=== PATIENT | male | born 1935 | race Caucasian/White ===

== ENCOUNTER 2019-09-13 10:50 | Day surgery (SDC) | payer MEDICARE ==
[2019-09-13] MEDS ORDERED: LIDOcaine 2% 5ml jelly ONE (11:36)
== END 2019-09-13 13:35 | disposition home or self-care (01) ==
LOC: WOUND CARE 10:50
PROVIDERS: ATTEND Surgery
DX: I83.012 Varicose veins of right lower extremity with ulcer of calf (principal); I70.232 Atherosclerosis of native arteries of right leg with ulceration of calf; L97.211 Non-pressure chronic ulcer of right calf limited to breakdown of skin; L97.812 Non-pressure chronic ulcer of other part of right lower leg with fat layer exposed; I10 Essential (primary) hypertension; H35.00 Unspecified background retinopathy; H26.9 Unspecified cataract; Z85.46 Personal history of malignant neoplasm of prostate
CPT/HCPCS: 97597; A4663; A6021; A6446

== ENCOUNTER 2019-09-20 09:45 | Outpatient (CLI) | payer MEDICARE ==
[2019-09-20] MEDS ORDERED: LIDOcaine 2% 5ml jelly ONE (10:02)
== END 2019-09-20 11:00 | disposition home or self-care (01) ==
LOC: WOUND CARE 09:45
PROVIDERS: ATTEND Surgery
DX: I83.012 Varicose veins of right lower extremity with ulcer of calf (principal); I70.232 Atherosclerosis of native arteries of right leg with ulceration of calf; L97.211 Non-pressure chronic ulcer of right calf limited to breakdown of skin; L97.812 Non-pressure chronic ulcer of other part of right lower leg with fat layer exposed; I10 Essential (primary) hypertension; H35.00 Unspecified background retinopathy; H26.9 Unspecified cataract; Z85.46 Personal history of malignant neoplasm of prostate
CPT/HCPCS: 29581; A4663; A6021; A6154; A6446

== ENCOUNTER 2019-09-27 09:40 | Day surgery (SDC) | payer MEDICARE ==
[2019-09-27] MEDS ORDERED: LIDOcaine 2% 5ml jelly ONE (10:12)
== END 2019-09-27 11:42 | disposition home or self-care (01) ==
LOC: WOUND CARE 09:40
PROVIDERS: ATTEND Surgery
DX: I83.012 Varicose veins of right lower extremity with ulcer of calf (principal); I70.232 Atherosclerosis of native arteries of right leg with ulceration of calf; L97.211 Non-pressure chronic ulcer of right calf limited to breakdown of skin; L97.812 Non-pressure chronic ulcer of other part of right lower leg with fat layer exposed; I10 Essential (primary) hypertension; H35.00 Unspecified background retinopathy; H26.9 Unspecified cataract; Z85.46 Personal history of malignant neoplasm of prostate
CPT/HCPCS: 97597; A4663; A6021; A6154; A6446

== ENCOUNTER 2019-10-04 09:26 | Day surgery (SDC) | payer MEDICARE ==
[2019-10-04] MEDS ORDERED: LIDOcaine 2% 5ml jelly ONE (09:54)
== END 2019-10-04 10:50 | disposition home or self-care (01) ==
LOC: WOUND CARE 09:26
PROVIDERS: ATTEND Surgery
DX: I83.012 Varicose veins of right lower extremity with ulcer of calf (principal); I70.232 Atherosclerosis of native arteries of right leg with ulceration of calf; L97.211 Non-pressure chronic ulcer of right calf limited to breakdown of skin; L97.812 Non-pressure chronic ulcer of other part of right lower leg with fat layer exposed; I10 Essential (primary) hypertension; H35.00 Unspecified background retinopathy; H26.9 Unspecified cataract; Z85.46 Personal history of malignant neoplasm of prostate
CPT/HCPCS: 97597; A4663; A6021; A6154; A6446

== ENCOUNTER 2019-10-11 10:55 | Day surgery (SDC) | payer MEDICARE ==
[2019-10-11] MEDS ORDERED: LIDOcaine 2% 5ml jelly ONE (12:02)
== END 2019-10-11 12:39 | disposition home or self-care (01) ==
LOC: WOUND CARE 10:55
PROVIDERS: ATTEND Surgery
DX: I83.012 Varicose veins of right lower extremity with ulcer of calf (principal); I70.232 Atherosclerosis of native arteries of right leg with ulceration of calf; L97.211 Non-pressure chronic ulcer of right calf limited to breakdown of skin; L97.812 Non-pressure chronic ulcer of other part of right lower leg with fat layer exposed; I10 Essential (primary) hypertension; H35.00 Unspecified background retinopathy; H26.9 Unspecified cataract; Z85.46 Personal history of malignant neoplasm of prostate
CPT/HCPCS: 97597; A4663; A6021; A6154; A6446

== ENCOUNTER 2019-10-18 09:10 | Day surgery (SDC) | payer MEDICARE | END 2019-10-18 11:26 | disposition home or self-care (01) | LOC: WOUND CARE 09:10 | PROVIDERS: ATTEND Surgery | DX: I83.012 Varicose veins of right lower extremity with ulcer of calf (principal); I70.232 Atherosclerosis of native arteries of right leg with ulceration of calf; L97.211 Non-pressure chronic ulcer of right calf limited to breakdown of skin; L97.812 Non-pressure chronic ulcer of other part of right lower leg with fat layer exposed; I10 Essential (primary) hypertension; H35.00 Unspecified background retinopathy; H26.9 Unspecified cataract; Z85.46 Personal history of malignant neoplasm of prostate | CPT/HCPCS: 93922; 93926; A6209; A6222; C5271; Q4102; A4663; A6250; A6446 ==

== ENCOUNTER 2019-10-25 09:30 | Day surgery (SDC) | payer MEDICARE ==
[2019-10-25] MEDS ORDERED: LIDOcaine 2% 5ml jelly ONE (09:49)
== END 2019-10-25 10:49 | disposition home or self-care (01) ==
LOC: WOUND CARE 09:30
PROVIDERS: ATTEND Surgery
DX: I83.012 Varicose veins of right lower extremity with ulcer of calf (principal); I70.232 Atherosclerosis of native arteries of right leg with ulceration of calf; L97.211 Non-pressure chronic ulcer of right calf limited to breakdown of skin; L97.812 Non-pressure chronic ulcer of other part of right lower leg with fat layer exposed; I10 Essential (primary) hypertension; H35.00 Unspecified background retinopathy; H26.9 Unspecified cataract; Z85.46 Personal history of malignant neoplasm of prostate
CPT/HCPCS: A6222; G0463; A4663; A6021; A6446

== ENCOUNTER 2019-11-04 09:27 | Day surgery (SDC) | payer MEDICARE ==
[2019-11-04] MEDS ORDERED: LIDOcaine 2% 5ml jelly ONE (11:15)
== END 2019-11-04 12:01 | disposition home or self-care (01) ==
LOC: WOUND CARE 09:27
PROVIDERS: ATTEND Surgery
DX: I83.012 Varicose veins of right lower extremity with ulcer of calf (principal); I70.232 Atherosclerosis of native arteries of right leg with ulceration of calf; L97.211 Non-pressure chronic ulcer of right calf limited to breakdown of skin; L97.812 Non-pressure chronic ulcer of other part of right lower leg with fat layer exposed; I10 Essential (primary) hypertension; H35.00 Unspecified background retinopathy; H26.9 Unspecified cataract; Z85.46 Personal history of malignant neoplasm of prostate
CPT/HCPCS: A6209; A6222; C5271; Q4102; A4663; A6446

== ENCOUNTER 2019-11-11 10:36 | Day surgery (SDC) | payer MEDICARE | END 2019-11-11 11:29 | disposition home or self-care (01) | LOC: WOUND CARE 10:36 | PROVIDERS: ATTEND Surgery | DX: I83.012 Varicose veins of right lower extremity with ulcer of calf (principal); I70.232 Atherosclerosis of native arteries of right leg with ulceration of calf; L97.211 Non-pressure chronic ulcer of right calf limited to breakdown of skin; L97.812 Non-pressure chronic ulcer of other part of right lower leg with fat layer exposed; I10 Essential (primary) hypertension; H35.00 Unspecified background retinopathy; H26.9 Unspecified cataract; Z85.46 Personal history of malignant neoplasm of prostate | CPT/HCPCS: 29581; A4663; A6021; A6154; A6446 ==

== ENCOUNTER 2019-11-15 22:57 | Inpatient (IN) | payer MEDICARE ==
[~2019-11-15] VITALS: Ht 182.9 cm; Wt 122.7 kg
[2019-11-15] MEDS ORDERED: normal saline 1000ML IV soln IV ONE (23:10)
[2019-11-15] MEDS ORDERED: acetaminophen 325mg tablet PO STA (23:10)
--- NOTE | 2019-11-15 23:27 | NUR ---
To CT scan via gurney with the side rails raised.
[2019-11-15 23:39] LABS: BASOPHILS # (AUTO) 0.1 X10'3 (0-0.2); BASOPHILS % (AUTO) 0.5 % (0-1); EOSINOPHILS % (AUTO) 0 % (0-6); HEMATOCRIT 34.7 % (42.0-52.0); LYMPHOCYTES # (AUTO) 0.9 X10'3 (1.1-4.8); LYMPHOCYTES % (AUTO) 7.5 % (21-51); MEAN CORPUSCULAR HEMOGLOBIN 31.6 PG (27.0-31.0); MEAN CORPUSCULAR HGB CONC 34.5 g/dL (33.0-36.5); MEAN CORPUSCULAR VOLUME 91.8 FL (78-98); MEAN PLATELET VOLUME 8.1 FL (7.4-10.4); MONOCYTES # (AUTO) 1.2 X10'3 (0-0.9); MONOCYTES % (AUTO) 9.3 % (2-12); NEUTROPHILS # (AUTO) 10.3 X10'3 (1.8-7.7); NEUTROPHILS % (AUTO) 82.7 % (42-75); PLATELET COUNT 156 X10'3 (140-440); RED BLOOD COUNT 3.78 X10'6 (4.70-6.10); RED CELL DISTRIBUTION WIDTH 14.6 % (11.5-14.5); WHITE BLOOD COUNT 12.4 X10'3 (4.5-11.0)
[2019-11-15 23:48] LABS: ALANINE AMINOTRANSFERASE 48 U/L (12-78); ALBUMIN 2.8 G/DL (3.4-5.0); ALBUMIN/GLOBULIN RATIO 0.7 (1.1-1.5); ALKALINE PHOSPHATASE 83 IU/L (46-116); ANION GAP 8 (8-16); ASPARTATE AMINO TRANSFERASE 83 U/L (10-37); BILIRUBIN,TOTAL 0.9 MG/DL (0.1-1.0); BLOOD UREA NITROGEN 26 MG/DL (7-18); BUN/CREATININE RATIO 13.3 (5.4-32.0); CALCIUM 8.5 MG/DL (8.5-10.1); CHLORIDE 96 MMOL/L (99-107); CREATININE 1.96 MG/DL (0.60-1.10); GLUCOSE 274 MG/DL (70-104); POTASSIUM 3.8 MMOL/L (3.5-5.1); SODIUM 131 MMOL/L (135-145); TOTAL CARBON DIOXIDE 26.6 MMOL/L (24-32); TOTAL PROTEIN 7.1 G/DL (6.4-8.2); eGFR 33 ML/MIN
[2019-11-15 23:53] LABS: ETHANOL < 0.010 GM/DL (0.0-0.010); TROPONIN I < 0.04 NG/ML (0.0-0.05)
[2019-11-16] MEDS ORDERED: CefTRIAXone 2gm/D5W 50ml 50 ML IV ONE (00:10)
[2019-11-16] MEDS ORDERED: azithromycin/NS 500mg/250ml 250 ML IV ONE (00:10)
[2019-11-16] MEDS ORDERED: ASPI-1265 PO (00:12)
[2019-11-16] MEDS ORDERED: CHOL400T14 PO (00:12)
[2019-11-16] MEDS ORDERED: LISI-600 PO (00:12)
[2019-11-16] MEDS ORDERED: PRAV20TA4 PO (00:12)
[2019-11-16] MEDS ORDERED: mag hydrox/Alum hydrox/simeth 30ml oral suspension PO PRN (01:20)
[2019-11-16] MEDS ORDERED: acetaminophen 325mg tablet PO PRN (01:20)
[2019-11-16] MEDS ORDERED: magnesium 2GM in 50ml NS 50 ML IV PRN (01:20)
[2019-11-16] MEDS ORDERED: magnesium Cl slow-release 64mg tablet PO PRN (01:20)
[2019-11-16] MEDS ORDERED: ondansetron/PF 4mg/2ml inj IV PRN (01:20)
[2019-11-16] MEDS ORDERED: magnesium 4gm in 100ml NS 100 ML IV PRN (01:20)
[2019-11-16] MEDS ORDERED: potassium Cl 20 mEq SR tablet PO PRN ×2 (01:20)
[2019-11-16] MEDS ORDERED: magnesium hydroxide 30ml (MOM) UD suspension PO PRN (01:20)
[2019-11-16] MEDS ORDERED: normal saline 1000ml 1,000 ML IV ONE (01:20)
[2019-11-16] MEDS ORDERED: potassium CL 10mEq/100ml bag 100 ML IV PRN ×2 (01:20)
[2019-11-16 03:05] VITALS: BP 121/59
--- NOTE | 2019-11-16 03:05 | NUR ---
PATIENT ADMITTED TO ROOM 357B FROM ER FOR [facility]F, EARLY SEPSIS, FEVER, RLE CELLULITIS AND DIZZINESS. PLACED COMFORTABLE IN BED. VITAL SIGNS TAKEN AND RECORDED.
--- NOTE | 2019-11-16 04:00 | NUR ---
PATIENT NOTED WITH RIGHT LOWER LEG COVERED WITH MATT BANDAGE AND PATIENT CLAIMED THAT HE IS SEEING WOUND CARE. REMOVED MATT BANDAGE AND KERLIX AND NOTED 2 SMALL AREAS WITH SPECIAL DRESSING. SHOWED TO CHARGE NURSE AND ADVICE NOT TO REMOVE DRESSING BECAUSE IT'S NOT AVAILABLE IN THE FLOOR BUT WAIT FOR WOUND CARE NURSE TO TAKE PICTURE AND CHANGE WITH NEW DRESSING.
[2019-11-16 04:34] LABS: HEMOGLOBIN A1C 7.4 % (4.5-6.2)
--- NOTE | 2019-11-16 06:20 | NUR ---
Patient in room [facility]. I have received report from YAW TIDWELL RN and had the opportunity to ask questions and assume patient care.
--- NOTE | 2019-11-16 06:26 | NUR ---
Problems reprioritized. Patient report given, questions answered & plan of care reviewed with ABISAI VARGAS.
[2019-11-16 07:00] VITALS: BP 144/70
[2019-11-16] MEDS: heparin, porcine 5000 units/ml vial SQ SCH ×2 (07:41→19:52)
[2019-11-16] MEDS: atorvastatin 10mg tablet PO SCH (07:42)
[2019-11-16] MEDS: aspirin 81mg tab.chew PO SCH (07:43)
[2019-11-16] MEDS: K and/or MAG REPLACEMENT MC SCH ×2 (08:00→20:00)
[2019-11-16 09:44] LABS: ALBUMIN 2.7 G/DL (3.4-5.0); ANION GAP 7 (8-16); BLOOD UREA NITROGEN 26 MG/DL (7-18); BUN/CREATININE RATIO 16.3 (5.4-32.0); CALCIUM 8.4 MG/DL (8.5-10.1); CHLORIDE 101 MMOL/L (99-107); GLUCOSE 212 MG/DL (70-104); POTASSIUM 3.5 MMOL/L (3.5-5.1); SODIUM 135 MMOL/L (135-145); TOTAL CARBON DIOXIDE 26.6 MMOL/L (24-32); eGFR 41 ML/MIN
[2019-11-16 11:00] VITALS: BP 137/62
--- NOTE | 2019-11-16 12:05 | NUR ---
DM consult: Pt documented with A1C of 7.4. Pt Matthew not appropriate for DM education at this time. Will continue to monitor. Addendum: 11/16/19 at 1206 by Wing Osmin MERCADO Amended: Links added. Addendum: 11/16/19 at [address] JESS Ceja
[2019-11-16] MEDS: normal saline 1000ml 1,000 ML IV SCH (13:32)
[2019-11-16] MEDS: acetaminophen 325mg tablet PO PRN (15:21)
--- NOTE | 2019-11-16 18:15 | NUR ---
Problems reprioritized. Patient report given, questions answered & plan of care reviewed with YAW TIDWELL RN.
--- NOTE | 2019-11-16 18:33 | NUR ---
Patient in room [facility]. I have received report from Miguelina john and had the opportunity to ask questions and assume patient care.
--- NOTE | 2019-11-16 19:27 | NUR ---
Patient in room [facility]. I have received report from SAM Larose and had the opportunity to ask questions and assume patient care.
--- NOTE | 2019-11-16 19:35 | NUR ---
Problems reprioritized. Patient report given, questions answered & plan of care reviewed with Marycruz.
[2019-11-16 20:00] VITALS: BP 170/86
[2019-11-16] MEDS ORDERED: MESSAGE TO PHARMACY PO ONE (21:50)
[2019-11-16] MEDS ORDERED: glucagon, human recombinant 1mg kit SUBCUT PRN (21:50)
[2019-11-16] MEDS ORDERED: dextrose 50%-water 50ml dispensing syringe IV PRN ×2 (21:50)
[2019-11-16] MEDS ORDERED: dextrose ORAL solution 15 GM/59 ML bottle PO PRN ×2 (21:50)
[2019-11-16] MEDS: insulin glargine (Lantus) pen - multi-dose SQ SCH (22:16)
[2019-11-17] VITALS: BP 146/70
[2019-11-17] MEDS: normal saline 1000ml 1,000 ML IV SCH ×3 (03:27→20:42)
--- NOTE | 2019-11-17 06:21 | NUR ---
Problems reprioritized. Patient report given, questions answered & plan of care reviewed with SAM Mcintyre.
[2019-11-17 06:36] LABS: BASOPHILS % (AUTO) 0.4 % (0-1); EOSINOPHILS # (AUTO) 0.1 X10'3 (0-0.9); EOSINOPHILS % (AUTO) 1.2 % (0-6); HEMATOCRIT 30.6 % (42.0-52.0); HEMOGLOBIN 10.7 g/dl (14.0-17.9); LYMPHOCYTES # (AUTO) 1.1 X10'3 (1.1-4.8); LYMPHOCYTES % (AUTO) 14.8 % (21-51); MEAN CORPUSCULAR HEMOGLOBIN 32.7 PG (27.0-31.0); MEAN CORPUSCULAR HGB CONC 35.1 g/dL (33.0-36.5); MEAN CORPUSCULAR VOLUME 92.9 FL (78-98); MEAN PLATELET VOLUME 8.6 FL (7.4-10.4); MONOCYTES # (AUTO) 0.9 X10'3 (0-0.9); MONOCYTES % (AUTO) 11.6 % (2-12); NEUTROPHILS # (AUTO) 5.4 X10'3 (1.8-7.7); PLATELET COUNT 128 X10'3 (140-440); RED BLOOD COUNT 3.29 X10'6 (4.70-6.10); RED CELL DISTRIBUTION WIDTH 14.3 % (11.5-14.5); WHITE BLOOD COUNT 7.5 X10'3 (4.5-11.0)
[2019-11-17 06:49] LABS: ALBUMIN 2.3 G/DL (3.4-5.0); ANION GAP 5 (8-16); BLOOD UREA NITROGEN 25 MG/DL (7-18); BUN/CREATININE RATIO 18.1 (5.4-32.0); CALCIUM 7.9 MG/DL (8.5-10.1); CHLORIDE 103 MMOL/L (99-107); CREATININE 1.38 MG/DL (0.60-1.10); GLUCOSE 187 MG/DL (70-104); POTASSIUM 3.8 MMOL/L (3.5-5.1); SODIUM 135 MMOL/L (135-145); TOTAL CARBON DIOXIDE 26.9 MMOL/L (24-32); eGFR 49 ML/MIN
[2019-11-17 07:00] VITALS: BP 138/67
--- NOTE | 2019-11-17 07:17 | NUR ---
Patient in room [facility]. I have received report from SAM ALARCON and had the opportunity to ask questions and assume patient care.
[2019-11-17] MEDS: K and/or MAG REPLACEMENT MC SCH ×2 (08:00→20:00)
[2019-11-17] MEDS: heparin, porcine 5000 units/ml vial SQ SCH ×2 (08:18→19:35)
[2019-11-17] MEDS: aspirin 81mg tab.chew PO SCH (08:19)
[2019-11-17] MEDS: atorvastatin 10mg tablet PO SCH (08:19)
[2019-11-17] MEDS: CefTRIAXone 2gm/D5W 50ml 50 ML IV SCH (08:19)
[2019-11-17] MEDS: insulin Lispro (HumaLOG) vial - multi-dose SQ SCH ×2 (09:34→14:01)
[2019-11-17 11:00] VITALS: BP 131/53
[2019-11-17] MEDS ORDERED: meclizine 12.5mg tablet PO PRN (12:35)
[2019-11-17] MEDS ORDERED: meclizine 12.5mg tablet PO ONE (12:35)
--- NOTE | 2019-11-17 18:50 | NUR ---
Patient in room [facility]. I have received report from SAM Mcintyre and had the opportunity to ask questions and assume patient care. Addendum: 11/17/19 at 1851 by Teresa Kirkland RN Amended: Links added.
--- NOTE | 2019-11-17 18:50 | NUR ---
Problems reprioritized. Patient report given, questions answered & plan of care reviewed with SAM MCKEON.
--- NOTE | 2019-11-17 19:12 | NUR ---
patient refused dinner and will not cover for insulin, BS 141
[2019-11-17] MEDS: acetaminophen 325mg tablet PO PRN (19:37)
[2019-11-17 20:00] VITALS: BP 152/76
[2019-11-17] MEDS: insulin glargine (Lantus) pen - multi-dose SQ SCH (22:14)
[2019-11-18] VITALS: BP 114/74
[2019-11-18 02:26] LABS: CLARITY,URINE CLEAR (Clear); COLOR,URINE YELLOW (Yellow); GLUCOSE, URINE NEGATIVE (Neg); KETONES,URINE TRACE mg/dl (Neg); LEUKOCYTE ESTERASE ,URINE SMALL (Neg); NITRITES, URINE NEGATIVE (Neg); OCCULT BLOOD,URINE MODERATE (Neg); PROTEIN,URINE TRACE mg/dl (Neg); UROBILINOGEN,URINE 0.2 E.U/dL (0.2-1.0)
[2019-11-18 02:27] LABS: UA COLLECTION TYPE NON-SPECIFIED
[2019-11-18 02:31] LABS: RBC,URINE 0-2 /HPF (0-2)
[2019-11-18 02:32] LABS: BACTERIA,URINE NONE SEEN /HPF (Neg); MUCUS STRANDS NONE SEEN /LPF (Neg); SQUAMOUS EPITHELIAL CELL,UR FEW /LPF (FEW)
[2019-11-18 02:34] LABS: TOTAL PROTEIN,URINE RANDOM 49.8 MG/DL
[2019-11-18 03:00] LABS: UA EOSINOPHILS NO EOS /HPF
[2019-11-18 03:40] LABS: URINE AMPHETAMINE SCREEN NEGATIVE (Neg); URINE BARBITUATE SCREEN NEGATIVE (Neg); URINE BENZODIAZEPINES SCREEN NEGATIVE (Neg); URINE CANNABINOID SCREEN NEGATIVE (Neg); URINE COCAINE SCREEN NEGATIVE (Neg); URINE METHADONE SCREEN NEGATIVE (Neg); URINE OPIATE SCREEN NEGATIVE (Neg); URINE PHENCYCLIDINE SCREEN NEGATIVE (Neg)
[2019-11-18 06:05] LABS: BASOPHILS % (AUTO) 0.4 % (0-1); EOSINOPHILS # (AUTO) 0.1 X10'3 (0-0.9); EOSINOPHILS % (AUTO) 1.5 % (0-6); HEMATOCRIT 31.4 % (42.0-52.0); HEMOGLOBIN 10.9 g/dl (14.0-17.9); LYMPHOCYTES # (AUTO) 1.1 X10'3 (1.1-4.8); LYMPHOCYTES % (AUTO) 13.7 % (21-51); MEAN CORPUSCULAR HEMOGLOBIN 31.8 PG (27.0-31.0); MEAN CORPUSCULAR HGB CONC 34.8 g/dL (33.0-36.5); MEAN CORPUSCULAR VOLUME 91.3 FL (78-98); MEAN PLATELET VOLUME 8.6 FL (7.4-10.4); MONOCYTES # (AUTO) 0.8 X10'3 (0-0.9); MONOCYTES % (AUTO) 10.1 % (2-12); NEUTROPHILS # (AUTO) 5.9 X10'3 (1.8-7.7); NEUTROPHILS % (AUTO) 74.3 % (42-75); PLATELET COUNT 158 X10'3 (140-440); RED BLOOD COUNT 3.44 X10'6 (4.70-6.10); RED CELL DISTRIBUTION WIDTH 14.4 % (11.5-14.5); WHITE BLOOD COUNT 7.9 X10'3 (4.5-11.0)
[2019-11-18 06:24] LABS: ALBUMIN 2.2 G/DL (3.4-5.0); ANION GAP 7 (8-16); BLOOD UREA NITROGEN 23 MG/DL (7-18); BUN/CREATININE RATIO 19.8 (5.4-32.0); CHLORIDE 105 MMOL/L (99-107); CREATININE 1.16 MG/DL (0.60-1.10); GLUCOSE 135 MG/DL (70-104); MAGNESIUM 1.9 MG/DL (1.5-2.4); POTASSIUM 3.7 MMOL/L (3.5-5.1); SODIUM 139 MMOL/L (135-145); TOTAL CARBON DIOXIDE 26.7 MMOL/L (24-32); eGFR 60 ML/MIN
--- NOTE | 2019-11-18 06:30 | NUR ---
Patient in room [facility]. I have received report from SAM Montague and had the opportunity to ask questions and assume patient care.
--- NOTE | 2019-11-18 06:32 | NUR ---
Problems reprioritized. Patient report given, questions answered & plan of care reviewed with SAM Blair.
[2019-11-18] MEDS: aspirin 81mg tab.chew PO SCH (07:53)
[2019-11-18] MEDS: atorvastatin 10mg tablet PO SCH (07:54)
[2019-11-18] MEDS: CefTRIAXone 2gm/D5W 50ml 50 ML IV SCH (07:54)
[2019-11-18] MEDS: heparin, porcine 5000 units/ml vial SQ SCH (07:54)
[2019-11-18 08:00] VITALS: BP 130/74
[2019-11-18] MEDS: K and/or MAG REPLACEMENT MC SCH (08:00)
[2019-11-18] MEDS: insulin Lispro (HumaLOG) vial - multi-dose SQ SCH ×2 (09:13→14:15)
[2019-11-18 11:00] VITALS: BP 132/67
[2019-11-18] MEDS: normal saline 1000ml 1,000 ML IV SCH (11:22)
[2019-11-18] MEDS ORDERED: MECL12.584 PO (13:11)
--- NOTE | 2019-11-18 16:00 | NUR ---
talked to case management about getting pt. front wheel walker to go home with. they are still working on getting it set up for us. pt. is waiting for his daughter to show up to take him home.
--- NOTE | 2019-11-18 17:59 | NUR ---
pt. discharged from facility at 1755. pt. was wheeled down to private vehicle by staff accompanied by his daughter. pt. understood and signed all paperwork. pt. d/c his own IV. the IV cannula appeared intact to RN when she saw it on pt. bedside table afterwards. [facility] delivered a front wheel walker to him and he left the facility with it. Dr. Willoughby discussed his new diagnosis of diabetes with him and his daughter before they left and both him and his daughter understood that a f/u with his PCP was going to be needed to address medical management of it. new meds were called into [facility] on [address] pt. left with all belongings.
== END 2019-11-18 17:45 | disposition home or self-care (01) | DRG 683 ==
LOC: ER 22:57 → ED HOLD 11-16 01:43 → EDBEDREQ 11-16 02:45 → SUR 3N 11-16 03:00
PROVIDERS: ADMIT Hospitalist; ATTEND Internal Medicine
DX: N17.9 Acute kidney failure, unspecified (principal); E87.1 Hypo-osmolality and hyponatremia; L03.115 Cellulitis of right lower limb; E11.9 Type 2 diabetes mellitus without complications; E78.00 Pure hypercholesterolemia, unspecified; E78.5 Hyperlipidemia, unspecified; H81.10 Benign paroxysmal vertigo, unspecified ear; I10 Essential (primary) hypertension; J32.1 Chronic frontal sinusitis; Z88.0 Allergy status to penicillin; Z79.899 Other long term (current) drug therapy; Z79.82 Long term (current) use of aspirin
CPT/HCPCS: 36415; 70450; 70544; 70551; 71045; 72141; 80048; 80053; 80305; 80320; 81001; 82570; 82948; 83036; 83605; 83735; 84156; 84300; 84443; 84484; 85025; 87040; 87081; 87088; 87207; 93005; 93306; 93880; 96361; 96365; 96367; 97116; 97161; 99285; G0378; J0456; J0696; J1644; J1815; J7030; J8597

== ENCOUNTER 2019-12-09 09:20 | Outpatient (CLI) | payer MEDICARE ==
[~2019-12-09 09:20] MED LIST: ASPI-1265 PO; CHOL400T14 PO; LISI-600 PO; MECL12.584 PO; PRAV20TA4 PO
== END 2019-12-09 10:25 | disposition home or self-care (01) ==
LOC: WOUND CARE 09:20
PROVIDERS: ATTEND Surgery
DX: E11.622 Type 2 diabetes mellitus with other skin ulcer (principal); I83.012 Varicose veins of right lower extremity with ulcer of calf; I70.232 Atherosclerosis of native arteries of right leg with ulceration of calf; L97.211 Non-pressure chronic ulcer of right calf limited to breakdown of skin; L97.812 Non-pressure chronic ulcer of other part of right lower leg with fat layer exposed; E11.319 Type 2 diabetes mellitus with unspecified diabetic retinopathy without macular edema; H35.00 Unspecified background retinopathy; E11.36 Type 2 diabetes mellitus with diabetic cataract; H26.9 Unspecified cataract; I10 Essential (primary) hypertension; E78.00 Pure hypercholesterolemia, unspecified; E78.5 Hyperlipidemia, unspecified; Z88.0 Allergy status to penicillin; Z79.82 Long term (current) use of aspirin; Z79.899 Other long term (current) drug therapy; Z85.46 Personal history of malignant neoplasm of prostate
CPT/HCPCS: 82948; G0463; A4663